=== PATIENT | male | born 1995 | race Caucasian/White ===

== ENCOUNTER 2024-02-23 16:45 | Emergency (ER) | payer OTHER, SELFPAY ==
[2024-02-23 16:52] VITALS: BP 154/106; PULSE 100; RESP 18; O2SAT 98; BMI 25.8
--- NOTE | 2024-02-23 16:56 | XR_ITS ---
Patient: TERRELL GONSALVES Facility:?[facility] Patient ID:?[id number] Site Patient ID:?[id number]. Site :?[id number] Study:?XRay-Extremity Left HAND 3 VIEWS-02/23/2024 5:10:47 PM Ordering Physician:CAMILA Final Report: INDICATION: Jammed fingers and manager human resources TECHNIQUE: Three views of the left hand FINDINGS: Comminuted fractures of the proximal 3rd middle phalanx, intra-articular and comminuted fractures of the left 2nd middle phalanx. No significant displacement or angulation. Soft tissue swelling present. Dictated by Priyanka Urban MD @ 02/23/2024 5:33:53 PM Signed by:?Priyanka Urban MD @02/23/2024 5:33:53 PM (Electronic Signature)
--- NOTE | 2024-02-23 16:59 | ED_ITS ---
HPI - General Adult General Chief complaint: Extremity Pain/Injury, Upper Stated complaint: broken finger Time Seen by Provider: 02/23/24 16:59 History of Present Illness HPI narrative: Was snow blowing and got his hand stuck in the shoot of the snowblower. Injured left pointer and middle finger, pointer finger with hematoma. 28-year-old man presenting to the emergency department with concern of injury to his left 2nd and 3rd finger. Decided to snow blow this wet heavy snow this evening and in the retail operations manager jammed so he reached just to move some of the snow off the top but got sucked in. No break in skin is noted. no other injuries. No treatments Related Data Home Medications Medication Instructions Recorded Confirmed No Known Home Medications 02/23/24 02/23/24 Allergies Allergy/AdvReac Type Severity Reaction Status Date / Time No Known Drug Allergies Allergy Verified 02/23/24 16:55 Review of Systems Status of ROS: Reports: 6 or more systems reviewed and unremarkable except as noted in History and below Exam Narrative: Exam Narrative: Pleasant. Breathing easily. Well built. Icing his fingers which he says has improved her discomfort. Icing his left hand. There is mild swelling about the 2nd and 3rd finger. When tested am able to determine there is appropriate resistance to flexion and extension at all joints well causing pain. Sensation intact. Small hematoma on volar DIP surface of the 2nd finger Const: Vital Signs, click to edit/add: Vital Signs - 24 hr 02/23/24 16:52 Pulse Rate [Right Pulse Oximeter] 100 Respiratory Rate 18 Blood Pressure [Ri ght Upper Arm] 154/106 H Pulse Oximetry 98 Oxygen Delivery Me thod Room Air Documenting provider has reviewed patient's vital signs: yes Course Vital Signs Vital signs: Initial Vital Signs Pulse Rate 100 02/23/24 16:52 Pulse Rhythm Regular 02/23/24 16:52 Respiratory Rate 18 02/23/24 16:52 Blood Pressure 154/106 H 02/23/24 16:52 Blood Pressure Mean 122 H 02/23/24 16:52 Blood Pressure Position Sitting 02/23/24 16:52 Pulse Oximetry 98 02/23/24 16:52 Oxygen Delivery Method Room Air 02/23/24 16:52 Vital Signs Pulse Rate 100 02/23/24 16:52 Respiratory Rate 18 02/23/24 16:52 Blood Pressure 154/106 H 02/23/24 16:52 Pulse Oximetry 98 02/23/24 16:52 Oxygen Delivery Method Room Air 02/23/24 16:52 Pulse Rate 100 02/23/24 16:52 Respiratory Rate 18 02/23/24 16:52 Blood Pressure 154/106 H 02/23/24 16:52 Pulse Oximetry 98 02/23/24 16:52 Oxygen Delivery Method Room Air 02/23/24 16:52 Medical Decision Making MDM Narrative Medical decision making narrative: Will need imaging looking for fracture. Will leave the hematoma intact; skin covered so not introduced potential infection though probably not very likely. He would appreciate some anesthetic so will be placing a ring block both fingers. Injected ultimately with 4.5 mL total of 0.25% bupivacaine. On reassessment excellent anesthesia is achieved. X-rays reviewed by me show middle phalangeal fractures at the proximal aspect of both 2nd and 3rd finger middle phalanges. Some comminution and I think does involve the articular surface. No significant displacement. I anticipate splinting and ortho follow-up. 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 Ortho in agreement for splinting and close follow-up. Tolerated all this quite well. See patient discharge plan for further discussion Discharge Plan Discharge Clinical Impression: Finger fracture, left Patient Disposition: Home, Self-Care Condition: Stable Additional Instructions: Elevate for comfort. Can take of 800 mg of ibuprofen up to 1000 mg of acetaminophen per dose. Alternative to the ibuprofen might be up to 500 mg naproxen 2 times daily. Ibuprofen or naproxen may be combined with acetaminophen. If you want to take off the splint to carefully ice, or clean up, you can do that. Please follow up with Orthopedics: If you do not hear from them by early afternoon tomorrow go ahead and call them at [phone] Activity Level: No Restrictions Discharge Diet: Regular Prescriptions: No Action No Known Home Medications Follow Up/Referrals: Provider,Not a Local [Primary Care Provider] - Stand Alone Forms: [employer] Info Instructions
== END 2024-02-23 18:24 | disposition home or self-care (01) ==
PROVIDERS: Emergency Provider Family Medicine
DX: S62.613A Displaced fracture of proximal phalanx of left middle finger, initial encounter for closed fracture (principal); S62.621A Displaced fracture of middle phalanx of left index finger, initial encounter for closed fracture; X58.XXXA Exposure to other specified factors, initial encounter; Y93.29 Activity, other involving ice and snow
CPT/HCPCS: 73130; 99283; 99284

== ENCOUNTER 2024-04-21 11:15 | Outpatient (RCR) | payer OTHER, SELFPAY ==
--- NOTE | 2024-03-26 12:29 | OT.OPOE ---
OT Outpatient Ortho Eval OT Outpatient Ortho Eval* Start: 03/26/24 09:34 Freq: Status: Active Protocol: Document 03/26/24 09:35 BEBETO (Rec: 03/26/24 12:27 BEBETO [id number]) E-signed By Yris Jensen, OTR/L, CLT OT OP Ortho Eval Details Complexity Complexity Low Insurance Information Insurance Information [employer] Insurance Information Comments Medical Dx: S62.651A - Nondisplaced fracture of middle phalanx of left index finger, initial encounter for closed fracture, & S62.653A - Nondisplaced fracture of middle phalanx of left middle finger, initial encounter for closed fracture Outpatient History/Precautions Current Condition/Medical Diagnosis Referring Provider Dr. Joaquin Mari Treatment Diagnosis Finger Stiffness, M25.64 & Localized edema R60.0 Date of Onset 02/23/24 Precautions Lifting Restrictions Other Precautions CHIEF COMPLAINT: Left index and middle finger fracture DATE OF INJURY: 02/23/2024 At Ortho f/u apt on 03/24/24 provider instructed patient to discontinue the splint and convert to cherise taping for the next 3-4 weeks. Patient was instructed to start gentle passive range of motion exercises to increase finger range of motion. He was also referred to Occupational therapy for passive and active motion and edema control. He is to avoid any lifting, pushing, pulling, or grasping with the left hand. Medical/Functional History Medical History Reviewed Yes Prior Level of Function/Mobility Fully Indep with self cares and IADLs (although he reports being more mindful of activities with the L hand- patient is R hand dominant but needs more time to complete bilateral hand tasks). 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 4 weeks ago, on 02/23/24 he sustained a left index and middle finger fracture. This injury occurred after his cottrell blower jammed and he reached into the chute to unclog it. He has been treated non operatively, wearing a splint regularly since the injury. Pain Assessment Pain Present Pain Present Pain Reported Location Left Hand Description Pressure,Throbbing,With Movement,Heaviness Intensity 4 Goniometric Comments Goniometric Comments Goniometric Comments L hand Index finger: DIP 15 degrees PIP 21 degrees MCP 75 degrees Middle finger: DIP 11 degrees PIP 17 degrees MCP 66 degrees Hand Pinch/Quote Clerk Strength Hand Right Quote Clerk Strength Position 1 (lbs) 100 Quote Clerk Strength Position 2 (lbs) 114 Lateral Pinch Strength (lbs) 30 Three Point Pinch (lbs) 17 Tip Pinch Strength (lbs) 15 Comments Comments Unable to test the L hand on date of Eval due to precautions/restrictions . OT Objective Data Hand Hand Dominance Right Hand Function Patient was able to weakly flex the PIP and IP joints of the index and middle fingers, but range of motion of the index and middle finger PIP and the IP joints was quite limited. Skin/Wounds/Edema Comments Mild diffuse edema of the index and middle fingers. Skin was intact, but there was a resolving subcutaneous hematoma on the volar aspect of the index finger. Sensation Sensation Assessment Summary Comments Sensation was intact to light touch throughout the index and middle fingers. Fingers are warm well perfused with good capillary refill. Additional Information Objective Additional Information IMAGING: (COPIED FROM CHART) AP, lateral, and oblique x- rays of the left hand performed in clinic today were reviewed. These demonstrate a transverse fracture through the index finger middle phalanx which is displaced approximately 2 mm. Nondisplaced, comminuted, intra-articular fracture through the proximal aspect of the middle finger middle phalanx. Compared to x-rays obtained 02/23/2024 and 2023, there has been no change in alignment. No evidence of radiographic healing as of yet. 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 4 weeks ago, on 02/23/24 he sustained a left index and middle finger fracture. This injury occurred after his cottrell blower jammed and he reached into the chute to unclog it. He has been treated non operatively, wearing a splint regularly since the injury. At Ortho f/ u apt on 03/24/24 provider instructed patient to discontinue the splint and convert to cherise taping for the next 3-4 weeks. Patient was instructed to start gentle passive range of motion exercises to increase finger range of motion. He was also referred to Occupational therapy for passive and active motion and edema control. He is to avoid any lifting, pushing, pulling, or grasping with the left hand. OT PLAN: treat pain symptoms with the use of modalities as indicated , manual therapy for progressing AROM, management of edema in the digits, development of an individualized HEP (and advancing the program as restrictions are lifted and as patient tolerates advancement ), patient education on the progression of treatment and activity modifications while healing. Occupational Therapy Treatment Plan - OP Potential Rehabilitation Potential Excellent Barriers Barriers to goal attainment None Noted Set Goals Goals Set with Patient Yes Goals Goals 1. From EVAL score ( 48 points ) on The Upper Extremity Functional Index (UEFI) patient will have a change in score by >9 points in order to show significant change in UE function to better her ADL, IADL and leisure performance. (The highest possible score of 80. The lowest possible score is 0. A lower score indicates that the person is reporting increased difficulty with the activities). 2. Patient will increase AROM of the L hand Index Finger in order to regain functional use of the L hand. 3. Patient will increase AROM of the L hand Middle Finger in order to regain functional use of the L hand. 4. Patient will be Indep and compliant with performing his HEP 6 days per week Independently as prescribed. 5. Patient will resume everyday activities and work- related tasks w/o L hand ( digit) pain increasing >2/10. Target Date 8 weeks Treatment Plan Treatment Plan Evaluation,Edema Control,Joint Mobilization,Manual Therapy, Ultrasound,Wound Care/Scar Management,Therapeutic Exercise,Self Care/Home Management,Education Expected Frequency 1-2x Week Expected Duration 8-10 Weeks Home Program Home Program Home Program Initiated Home Program Specifics Access Code: [email or web address] URL: [email or web address] Date: 03/26/2024 Prepared by: Yris Jensen Exercises - Finger Spreading - 1 x daily - 7 x weekly - 3 sets - 10 reps - Thumb Opposition - 1 x daily - 7 x weekly - 3 sets - 10 reps - Seated Finger DIP Flexion AROM with Blocking - 1 x daily - 7 x weekly - 3 sets - 10 reps - Finger PIP Flexion Extension with Blocking - 1 x daily - 7 x weekly - 3 sets - 10 reps - Seated Finger MP Extension AROM with Blocking - 1 x daily - 7 x weekly - 3 sets - 10 reps - Finger Circulation - 1 x daily - 7 x weekly - 3 sets - 10 reps Recertification Information Recertification Information Initial Certification Date 03/26/24 Recertification Due Date 06/24/24 Click To Default 'Per treatment plan' Per treatment plan Continued Plan of Care and Interventions Per treatment plan Provider Signature Shows Agreement With POC & Medical Necessity Physician Comment/Change Comment or Changes Physician NPI Number #
== END 2024-08-19 23:59 | disposition home or self-care (01) ==
PROVIDERS: Visit Provider Orthopaedic Surgery
DX: S62.653A Nondisplaced fracture of middle phalanx of left middle finger, initial encounter for closed fracture (principal); S62.651A Nondisplaced fracture of middle phalanx of left index finger, initial encounter for closed fracture; Z51.89 Encounter for other specified aftercare
CPT/HCPCS: 97110; 97165; X5282